=== PATIENT | female | born 1950 | race Two or more races ===

== ENCOUNTER 2020-01-23 11:53 | Outpatient (CLI) | payer MEDICARE, OTHER ==
--- NOTE | 2020-01-23 13:15 | Consultation ---
DATE OF CONSULTATION: 01/23/2020 CONSULTING PHYSICIAN: Wes Nolasco MD. CHIEF COMPLAINT: Referral for screening colonoscopy. HISTORY OF PRESENT ILLNESS: This is a very pleasant 69-year-old female who is known to me from 2010. She had colonoscopy 2011. She has complained of some abdominal bloating. Denies any nausea, vomiting, dysphagia, or odynophagia. PAST MEDICAL HISTORY: 1. History of GERD. 2. History of coronary artery disease, irregular heartbeat. 3. Hypercholesterolemia. ALLERGIES: No known allergies. MEDICATIONS: Please see medication reconciliation list. SOCIAL HISTORY: She is , lives with . No history of tobacco, alcohol, or drug abuse. FAMILY HISTORY: Noncontributory. REVIEW OF SYSTEMS: A 10-point review of systems was performed and pertinent positives in HPI. PHYSICAL EXAMINATION: GENERAL: A well-developed female, in no acute distress. HEENT: Normocephalic and atraumatic. Sclerae are anicteric. NECK: Supple. No evidence of obvious lymphadenopathy. CARDIOVASCULAR: Regular rate and rhythm. Plus S1-S2. LUNGS: Clear to auscultation bilaterally. ABDOMEN: Positive bowel sounds. Soft and nontender. No rebound. No guarding. No peritoneal sign. EXTREMITIES: No cyanosis, no clubbing, no edema. ASSESSMENT AND PLAN: This is a 69-year-old female with abdominal bloating and distention, highly suspicious for SIBO, which we are going to treat with Xifaxan. In terms of colonoscopy, it has been over 8 years. The patient needs to be scheduled for colonoscopy. The patient was given the instruction for colonoscopy and the prep was explained to her. We are going to schedule her for colonoscopy. Wes Nolasco M.D. DR: SIMEON JOB#: [id number] CC:
== END 2020-01-23 13:53 | disposition home or self-care (01) ==
LOC: PAN 11:53
DX: R14.0 Abdominal distension (gaseous) (principal); K21.9 Gastro-esophageal reflux disease without esophagitis; E78.00 Pure hypercholesterolemia, unspecified; I25.10 Atherosclerotic heart disease of native coronary artery without angina pectoris
CPT/HCPCS: 99212